=== PATIENT | male | born 1990 | race Caucasian/White ===

== ENCOUNTER 2019-11-29 10:26 | Emergency (ER) | payer OTHER ==
[~2019-11-29] VITALS: Ht 180.3 cm; Wt 113.4 kg
[~2019-11-29 10:26] MED LIST: AMOX500 PO; ATEN25; ATEN50 PO; AZIT250 PO; CEPH500 PO; CLON.1 PO; CRUTCH3 USE; Cleocin HCl150 MG PO; HYDACE5 PO; HYDACE5325 PO; IBUP600 PO; Klonopin1 MG PO; META800 PO; NAPR500 PO; NAPR550 PO; ONDA4ODT MM; OXYACE5T PO; PROACE100 PO; PROM25 PO; RXHYDACE PO; RXPROACE PO; RXPROM25 PO; RXSULTRIDS PO; RXTRAM50 PO; SULTRIDS PO; TRAM50 PO; Tenormin25 MG PO; [UNRECOGNIZED DRUG - CODE]
[2019-11-29] MEDS ORDERED: CRUTCH4 XX (13:05)
[2019-11-29] MEDS ORDERED: HYDR1TAB94 PO (13:05)
== END 2019-11-29 13:15 | disposition home or self-care (01) ==
LOC: ER 10:26
DX: M25.561 Pain in right knee (principal); F17.210 Nicotine dependence, cigarettes, uncomplicated; Z79.899 Other long term (current) drug therapy
CPT/HCPCS: 73562-RT; 99283-25

== ENCOUNTER 2020-04-25 14:19 | Day surgery (SDC) | payer OTHER ==
[~2020-04-25] VITALS: Ht 182.9 cm; Wt 125.0 kg
[~2020-04-25 14:19] MED LIST changes: +CRUTCH4 XX; +HYDR1TAB94 PO
--- NOTE | 2020-04-25 16:54 | NUR ---
04/25/20 1654 Joby [place] 1 MG EPI ADDED TO EACH OF THE FIRST 3 BAGS OF LR FOR IRRIGATION PER ORDER.
== END 2020-04-25 18:45 | disposition home or self-care (01) ==
LOC: ORSCSDS 14:19
PROVIDERS: Orthopaedic Surgery
PROC: 0SQC4ZZ Repair Right Knee Joint, Percutaneous Endoscopic Approach (ICD-10-PCS; principal; 2020-04-25 15:45)
DX: S83.281A Other tear of lateral meniscus, current injury, right knee, initial encounter (principal); M22.41 Chondromalacia patellae, right knee; I10 Essential (primary) hypertension; E66.01 Morbid (severe) obesity due to excess calories; Z68.37 Body mass index [BMI] 37.0-37.9, adult
CPT/HCPCS: A9270; C1713; J0171; J1100; J2250; J2405; J2704; J2795; J3010; J7120

== ENCOUNTER 2021-04-23 17:52 | Emergency (ER) | payer OTHER ==
[~2021-04-23] VITALS: Ht 182.9 cm; Wt 124.7 kg
[2021-04-23] MEDS ORDERED: Robaxin750 MG PO (18:47)
== END 2021-04-23 19:10 | disposition home or self-care (01) ==
LOC: ER 17:52
DX: S20.212A Contusion of left front wall of thorax, initial encounter (principal); M62.89 Other specified disorders of muscle; F17.210 Nicotine dependence, cigarettes, uncomplicated; Z88.8 Allergy status to other drugs, medicaments and biological substances; Z88.0 Allergy status to penicillin; Z88.6 Allergy status to analgesic agent; Z88.1 Allergy status to other antibiotic agents; V86.96XA Unspecified occupant of dirt bike or motor/cross bike injured in nontraffic accident, initial encounter
CPT/HCPCS: 71101; 99283-25